=== PATIENT | female | born 1960 | race Caucasian/White ===

== ENCOUNTER 2017-03-15 12:24 | Day surgery (SDC) | payer OTHER ==
[~2017-03-15] VITALS: Ht 170.2 cm; Wt 68.0 kg
--- NOTE | 2017-03-15 07:53 | PCM.HPANE ---
Patient Data Surgeon Admitting Provider: Attending Provider:Thomas Gardner MD Primary Care Physician:Ericka Lazar MD Other Provider:Janeen Trotteringham Anesthesia Reason for Visit Adenomatous Polyp Of Colon Ht/WT & BMI Body Mass Index Allergies Coded Allergies: Sulfa (Sulfonamide Antibiotics) (Verified Allergy, Unknown, 03/14/17) Past Anesthesia History Anesthesia History: Positive for:: Fam Anesthesia Reaction (FATHER REACTS TO GENERAL ANESTHESIA NOT SURE WHAT REACTION HE GETS), Fam Malignant Hypertherm ( FATHER), Denies:: Abnormal Airway, Anesthesia Reactions, Difficult Intubation, Malignant Hyperthermia Diabetes History Hx Diabetes?: No MRSA MRSA: No Medications Reported Medications Acyclovir 400 Mg [id number] Mg PO BID Ref 0 03/14/17 Noreth A-Et Estra/Fe Fumarate (Microgestin Fe 11/19 Tablet)1 Tab Tablet1 Tab PO DAILY 09/26/13 Discontinued Reported Medications Temazepam 30 Mg Cap30 Mg PO HS PRN For Insomnia 30 Days Ref 0 03/14/17 Lidocaine (Topicaine)113 Gm Gel..gram.113 Gm TP 03/14/17 Lidocaine (Lidoderm)700 Mg Adh..patch1 Patch TP UD Ref 0 03/14/17 Hydrocodone-Acetaminophen 5-325 mg 1 Each Tablet1 Tablet PO Q4H PRN For Pain Ref 0 03/14/17 Peg 3350/Na Sulf,Bicarb,Cl/Kcl (Golytely Solution)4,000 Ml Soln.recon4,000 Ml PO UD 09/26/13 Bisacodyl-Expunged Drug, Do Not Renew! 5 Mg Aeyntw92 Mg PO ONCE For the relief of constipation. 09/26/13 Acyclovir-Expunged Drug, Do Not Renew! 200 Mg Picfyyb289 Mg PO Q4 09/26/13 History History of ENT Problems?: No HEENT History: Denies:: Abnormal Airway Difficult Intubation Hearing Problem Denture Type: None Teeth Condition: Within Normal Limits Hx of Heart Problems?: No Cardiovascular History: Denies:: AICD Abdominal Aortic Aneurism Atrial Fibrillation Cardiac Surgery Chest Pain Congestive Heart Failure Coronary Artery Disease Edema Heart Murmur Hypertension Irregular Heartbeat Pacemaker Peripheral Vascular Rheumatic Fever Thrombophlebitis Valvular Heart Disease Hx of Respiratory Problem?: No Respiratory History: Denies:: Asthma COPD Chest Surgery Cough Dyspnea Emphysema Hemoptysis Oxygen Administration Pneumonia Pulmonary Embolism Tuberculosis Use of C-PAP Machine Use of Inhalers / NEBS Hx Neurologic Problems?: No Neurological History: Denies:: Alzheimer's Disease CVA Dementia Dizziness Headaches Multiple Sclerosis Parkinson's Disease Peripheral Neuropathy Seizures TIA Hx of GI Problems?: No Gastrointestinal History: Denies:: Cirrhosis Diverticulitis Gall Bladder Disease Gastroesphageal Reflux Gastrointestinal Bleeding Heartburn Hepatitis Hiatal Hernia Liver Disease Rectal Bleeding Hx of Problems?: No Genitourinary History: Denies:: HX of Hemodialysis Kidney Stones Urinary Tract Infection Female Hx: Denies:: Currently Hx Musculoskeletal Problems?: No Musculoskeletal History: Denies:: Back Injury Degenerative Joint Fibromyalgia Joint Replacement Musculoskeletal Trauma Myasthenia Gravis Osteoarthritis Rheumatoid Arthritis Systemic Lupus Hx Surgeries?: Yes (laminectomy x 2) Hx Any Other Health Problems?: No Hx Diabetes: No Hx Alcohol Use: Yes (2 Glasses a week) Stop/Bang Risk Assessment Category Category 1A: Patient has history of documented sleep apnea, and HAS NOT received any narcotic, sedative or anesthesia administration during this stay. Category 1B: Patient has history of documented sleep apnea, and HAS received any narcotic , sedative or anesthesia administration during this stay Category 2: Patient has SUSPECTED Obstructive Sleep Apnea, and HAS received any narcotic , sedative or anesthesia administration during this stay. Category 3: Patient has SUSPECTED Obstructive Sleep Apnea and HAS NOT received narcotic, sedative or anesthesia administration during this stay. Category 4: Outpatient in Procedural Areas with known sleep apnea or who screen positive for High Risk via the STOP/BANG questionnaire. Exam Exam General Appearance: Alert, Oriented X3, Cooperative, No Acute Distress HEENT/AIRWAY: MP 2 Lungs: Clear to Auscultation Heart: Exam Unremarkable Plan Impression Patient chart reviewed, patient interviewed and anesthestic plan with risks, benefits, and alternatives discussed, and informed consent obtained. ASA Physical Status: ASA1 Normal Healthy Anesthetic Plan: GA Bene/Risks/Altern/Consents: Yes HP Complete Prior to Induction: Yes Darin Miguel MD March 15, 2017 07:53
[~2017-03-15 12:24] MED LIST: ACYC400T2 PO; BISA5TAB12 PO; HYDR-4003 PO; LIDO113G3 TP; LIDO700A6 TP; Lactated Ringer's 1,000 ML IV ONE; NORE1TAB59 PO; PEG4000S8 PO; RES30 PO
[2017-03-15] MEDS ORDERED: Propofol 10,000 mCg/mL 20 mL Inj ONE (12:25)
[2017-03-15] MEDS ORDERED: fentaNYL-PF 50 mCg/mL 2 mL Inj ONE (12:25)
[2017-03-15 12:46] VITALS: BP 152/102; PULSE 82; RESP 14; O2SAT 97
[2017-03-15 12:58] VITALS: BP 155/89
[2017-03-15] MEDS ORDERED: Lactated Ringer's 1,000 ML IV SCH (13:09)
[2017-03-15] MEDS ORDERED: MetoCLOpramide 5 mg/mL 2 mL Inj IVPUSH PRN (13:10)
[2017-03-15] MEDS ORDERED: Ondansetron 2 mg/mL 2 mL Inj IVPUSH PRN (13:10)
[2017-03-15 14:00] VITALS: BP 111/62; PULSE 82; RESP 16; O2SAT 98
--- NOTE | 2017-03-15 14:06 | PCM.ANEP1 ---
Post Anesthesia Phase 1 PACU Phase 1 Assessment Vital Signs Vital Signs Date Time Temp Pulse Resp B/P Pulse Ox O2 Delivery O2 Flow Rate FiO2 03/15/17 14:00 82 16 111/62 98 Room Air 03/15/17 12:58 155/89 03/15/17 12:46 36.7 82 14 152/102 97 Room Air Anesthetic Administered: GA Level of Alertness: Awake, talking WEBB's with Equal Strength: Yes Pain: No Nausea or Vomiting: No Oxygen Delivery: Room Air Lungs: Normal Air Movement Complications: No Follow up Care: No Darin Miguel MD March 15, 2017 14:06
[2017-03-15 14:09] VITALS: BP 130/78; PULSE 68; RESP 16; O2SAT 99
[2017-03-15 14:19] VITALS: BP 152/88; PULSE 72; RESP 16; O2SAT 98
--- NOTE | 2017-03-15 14:19 | ENDO ---
[address] [address] ENDOSCOPY PROCEDURE PATIENT: KEEGAN RAYMUNDO : 1960 MR#: [id number] ADMIT: 03/15/2017 JOB ID: [id number] DATE: 03/15/2017 PRIMARY PROVIDER: Ericka Lazar M.D. PROCEDURE: Colonoscopy with hot and cold snare polypectomy. INDICATIONS: A 56-year-old female who reports for colon cancer screening. She has a personal history of colon polyps. EQUIPMENT: PCZetrOZ H 180 AL. SEDATION: Monitored anesthesia as provided by Dr. Billy Miguel. COMPLICATIONS: None identified. BOWEL PREPARATION: Fair, adequate examination. PROCEDURAL INFORMATION: After the risks and benefits were explained, written and verbal informed consent was obtained. The patient was brought into the endoscopy suite and placed into the left lateral decubitus position. Sedation was achieved as above. A digital rectal examination was accomplished. No significant pathology appreciated apart from some mild internal hemorrhoids. The scope was introduced into the rectum and advanced under direct visualization to the level of the cecum, as identified by the appendiceal orifice and ileocecal valve. The scope was slowly withdrawn to carefully examine the mucosa for any defects or lesions. Multiple direct views were made through the dentate line for exclusion of pathology. The colon was decompressed. The scope removed from the patient who tolerated the procedure well. FINDINGS: Three small polyps were removed from the cecum. The largest was perhaps 6 mm. The smallest about 4-5 mm. The two larger ones we removed with hot snare. The smallest with cold snare. No other pathology was appreciated throughout. ENDOSCOPIC DIAGNOSIS: Gastroduodenopathy. 1. Three colon polyps. 2. Mild internal hemorrhoids. RECOMMENDATIONS: 1. Await histopathology. 2. Repeat colonoscopy in three years if all of these are confirmed adenomatous.
--- NOTE | 2017-03-18 09:59 | PATH ---
SURGICAL PATHOLOGY Attending Physician:Mireya Schumacher CASE STATUS: Signed Out PATIENT NAME: KEEGAN RAYMUNDO PID: [id number] : 1960 DATE COLLECTED:03/15/2017 00:00 SPECIMEN: Colon, Biopsy CLINICAL HISTORY: 1. CECAL POLYP X3 FINAL DIAGNOSIS: Cecal Polyps x3: Tubular adenoma, one. Benign colonic mucosa with intramucosal lymphoid aggregate, one. Benign colonic mucosa consistent with polypoid redundancy, one. Multiple microscopic levels examined. ICD10: D12.0 GROSS DESCRIPTION: The specimen is received in one formalin filled container labeled with the patient's name, sublabeled "cecal" and consists of 3 portions of tissue which aggregate to 0.3 x 0.3 x 0.2 CM. The specimen is entirely submitted in one cassette. 03/16/2017 [facility] MICRO DESCRIPTION: Please see diagnosis. ICD-9 CODES: CPT CODES: 1: 21975, 91299, 88628 Electronically Signed Out Tasha Tavarez MD [facility] [address], [place] [address] Technical component performed at [facility], [address] [place] [address] Ave[address], [place], [address]
== END 2017-03-15 23:59 | disposition home or self-care (01) ==
LOC: END 12:24
PROVIDERS: ATTEND Internal Medicine Gastroenterology
DX: Z12.11 Encounter for screening for malignant neoplasm of colon (principal); D12.0 Benign neoplasm of cecum; K64.8 Other hemorrhoids; Z86.010 Personal history of colon polyps
CPT/HCPCS: 45385; J2250; J3010; J7120

== ENCOUNTER → 2017-07-13 | Day surgery (SDC) | payer OTHER ==
[~2017-07-13] VITALS: Ht 170.2 cm; Wt 65.0 kg
[~2017-07-13] MED LIST changes: +0.9% Sodium Chloride 1,000 ML IV PRN; -BISA5TAB12 PO; -HYDR-4003 PO; -LIDO113G3 TP; -LIDO700A6 TP; -Lactated Ringer's 1,000 ML IV ONE; +Lactated Ringer's 1,000 ML IV SCH; +MetoCLOpramide 5 mg/mL 2 mL Inj IVPUSH PRN; +Ondansetron 2 mg/mL 2 mL Inj IVPUSH PRN; -PEG4000S8 PO; -RES30 PO; +Sodium Chloride LOK Flush 10 mL Syringe IV PRN; +fentaNYL-PF 50 mCg/mL 2 mL Inj IVPUSH PRN
[2017-07-13 11:24] VITALS: BP 154/89; PULSE 74; RESP 14; O2SAT 99
--- NOTE | 2017-07-13 11:50 | PCM.HPANE ---
Patient Data Surgeon Admitting Provider: Attending Provider:Thomas Gradner MD Primary Care Physician:Ericka Lazar MD Other Provider: Reason for Visit Right Upper Quadrant Pain Ht/WT & BMI Height (Feet): 5 Height (Inches): 7 Weight (Kilograms): 65 Body Mass Index 22.00 Allergies Coded Allergies: Sulfa (Sulfonamide Antibiotics) (Verified Allergy, Unknown, 07/13/17) Past Anesthesia History Anesthesia History: Positive for:: Fam Anesthesia Reaction (DAD), Fam Malignant Hypertherm (MY DAD HAS THAT THING WITH TEMPERATURE?), Denies:: Abnormal Airway, Anesthesia Reactions, Difficult Intubation, Malignant Hyperthermia Diabetes History Hx Diabetes?: No MRSA MRSA: No Medications Hypertension Medication: No Home Meds Incl Beta Jeovany: No Reported Medications Acyclovir 400 Mg Uzkqny416 Mg PO BID Ref 0 03/14/17 Noreth A-Et Estra/Fe Fumarate (Microgestin Fe 11/19 Tablet)1 Tab Tablet1 Tab PO DAILY 09/26/13 History History of ENT Problems?: No HEENT History: Denies:: Abnormal Airway Difficult Intubation Dysphagia Hearing Problem Denture Type: None Teeth Condition: Within Normal Limits Hx of Heart Problems?: No Cardiovascular History: Denies:: AICD Abdominal Aortic Aneurism Atrial Fibrillation Cardiac Surgery Chest Pain Congestive Heart Failure Edema Heart Murmur Hypertension Irregular Heartbeat Pacemaker Rheumatic Fever Thrombophlebitis Valvular Heart Disease Hx of Respiratory Problem?: No Respiratory History: Denies:: Asthma COPD Chest Surgery Cough Dyspnea Emphysema Hemoptysis Oxygen Administration Pneumonia Pulmonary Embolism Tuberculosis Use of C-PAP Machine Hx Neurologic Problems?: No Neurological History: Denies:: Alzheimer's Disease CVA Dementia Dizziness Headaches Multiple Sclerosis Parkinson's Disease Seizures Hx of GI Problems?: No Hx of Problems?: No Genitourinary History: Denies:: HX of Hemodialysis Kidney Stones Urinary Tract Infection Female Hx: Denies:: Currently Hx Musculoskeletal Problems?: No Musculoskeletal History: Denies:: Back Injury Degenerative Joint Fibromyalgia Joint Replacement Musculoskeletal Trauma Systemic Lupus Psycho Social History: Positive for:: Anxiety Denies:: Hx Depression Hx Surgeries?: Yes (TONSILS, LUMBAR LAMI L5-S1) Hx Any Other Health Problems?: Yes Hx Diabetes: No Hx Alcohol Use: Yes Smoking Status: Never Smoker Stop/Bang Treated for Sleep Apnea?: No Do You Have a CPAP Machine?: No S-Snoring: Do You Snore Loudly: No T-Tired: feel tired, fatigued: No O-Obsered: Observed not breath: No P-Blood Pressure: treated: Yes B- Body Mass Index > 35 kg/m2: No A- Age over 50: Yes N- Neck Large Circumference: No G- Gender Male: No RICK Total Score: 2 RICK Risk Assessment: Low Risk, <3 Yes Risk Assessment Category Category 1A: Patient has history of documented sleep apnea, and HAS NOT received any narcotic, sedative or anesthesia administration during this stay. Category 1B: Patient has history of documented sleep apnea, and HAS received any narcotic , sedative or anesthesia administration during this stay Category 2: Patient has SUSPECTED Obstructive Sleep Apnea, and HAS received any narcotic , sedative or anesthesia administration during this stay. Category 3: Patient has SUSPECTED Obstructive Sleep Apnea and HAS NOT received narcotic, sedative or anesthesia administration during this stay. Category 4: Outpatient in Procedural Areas with known sleep apnea or who screen positive for High Risk via the STOP/BANG questionnaire. Exam Exam Vital Signs Vital Signs Date Time Temp Pulse Resp B/P Pulse Ox O2 Delivery O2 Flow Rate FiO2 07/13/17 11:24 74 14 154/89 99 Room Air General Appearance: Oriented X3 HEENT/AIRWAY: MP 2 Lungs: Normal Air Movement Heart: Regular Rate/Rhythm Plan Impression Patient chart reviewed, patient interviewed and anesthestic plan with risks, benefits, and alternatives discussed, and informed consent obtained. ASA Physical Status: ASA2 Mod Systemic Disease Anesthetic Plan: MAC Bene/Risks/Altern/Consents: Yes HP Complete Prior to Induction: Yes Rashel Rodriguez MD Jul 13, 2017 11:50
[2017-07-13 12:17] VITALS: BP 121/76; PULSE 86; RESP 16; O2SAT 98
[2017-07-13 12:27] VITALS: BP 155/86; PULSE 85; RESP 16; O2SAT 99
--- NOTE | 2017-07-13 14:02 | ENDO ---
[address] [address] ENDOSCOPY PROCEDURE PATIENT: KEEGAN RAYMUNDO : 1960 MR#: [id number] ADMIT: 07/13/2017 JOB ID: [id number] DATE: 07/13/2017 PRIMARY PROVIDER: Ericka Lazar M.D. PROCEDURE: Esophagogastroduodenoscopy with biopsies. INDICATIONS: This is a 57-year-old female with new onset epigastric to right upper quadrant pain. Ultrasound did not reveal any obvious biliary abnormalities. Follow up HIDA scan was within normal limits. The patient, however, did report 5-6/10 pain with the CCK infusion. EGD is pursued today to exclude upper GI mucosal pathology. EQUIPMENT: GIF H 180 J. SEDATION: Monitored anesthesia as provided by Dr. Rashel Rodriguze. COMPLICATIONS: None identified. PROCEDURAL INFORMATION: After the risks and benefits were explained, written and verbal informed consent was obtained. The patient was brought into the endoscopy suite and placed into the left lateral decubitus position. Sedation was achieved using the above-stated medications with the addition of oxygen via nasal cannula. The scope was introduced into the mouth through the bite block, and advanced to the second portion of the duodenum. The scope was slowly withdrawn to carefully examine the mucosa for any defects or lesions. Retroflexed views were accomplished in the stomach. The stomach was decompressed. The scope removed from the patient who tolerated the procedure well. FINDINGS: 1. Duodenum: No significant mucosal pathology appreciated from the bulb through to the second portion. 2. Stomach: The patient had a diffuse mild gastropathy seen throughout. I did not see any outlet obstruction, ulcers, mass lesions or other significant mucosal pathology including retroflexed views of the LES. Random gastric biopsies were taken for exclusion of Helicobacter or other pathology. 3. Esophagus: The squamocolumnar junction correlated with the top of the gastric folds. The GEJ was at approximately 41 cm from the incisors. There was a subtle sliding hiatal hernia. No other esophageal pathology appreciated throughout. ENDOSCOPIC DIAGNOSIS: Gastroduodenopathy. 1. Subtle sliding hiatal hernia. 2. Mild gastropathy. RECOMMENDATIONS: 1. Await histopathology. 2. If Helicobacter is found, it will need to be eradicated with standard triple therapy. 3. I would recommend surgical consultation to discuss the symptoms in that thus far the only significant abnormality we have identified is the CCK induced pain during HIDA scan imaging.
--- NOTE | 2017-07-14 11:36 | PATH ---
SURGICAL PATHOLOGY Attending Physician:Mireya Schumacher CASE STATUS: Signed Out PATIENT NAME: KEEGAN RAYMUNDO PID: [id number] : 1960 DATE COLLECTED:07/13/2017 20:27 SPECIMEN: Gastric, Biopsy CLINICAL HISTORY: 1). GASTRIC BIOPSY, RULE OUT H.PYLROI FINAL DIAGNOSIS: Stomach, Biopsy: Body-type mucosa with no diagnostic abnormality. Negative for inflammation and Helicobacter organisms. Negative for intestinal metaplasia, dysplasia and malignancy. ICD10: R10.13 GROSS DESCRIPTION: The specimen is received in one formalin filled container labeled with the patient's name, sublabeled "gastric" and consists of a 0.3 x 0.3 x 0.2 CM portion of tissue which is entirely submitted in one cassette. 07/13/2017OR ICD-9 CODES: CPT CODES: 1: 79677 Electronically Signed Out Pb Terry MD, PhD [facility], [place] [address] Technical component performed at [facility], [address] [place] [address] Ave[address], [place], [address]
== END | disposition home or self-care (01) ==
LOC: END 02:26
PROVIDERS: ATTEND Internal Medicine Gastroenterology
DX: R10.11 Right upper quadrant pain (principal); K44.9 Diaphragmatic hernia without obstruction or gangrene; K31.9 Disease of stomach and duodenum, unspecified; F41.9 Anxiety disorder, unspecified; Z79.899 Other long term (current) drug therapy

== ENCOUNTER → 2017-07-28 | Day surgery (SDC) | payer OTHER ==
[~2017-07-28] VITALS: Ht 167.6 cm; Wt 64.8 kg
[2017-07-28] VITALS (7 sets, daily range): BP systolic 119–139; BP diastolic 67–85; PULSE 60–80; RESP 13–16; O2SAT 92–100
[~2017-07-28] MED LIST changes: -0.9% Sodium Chloride 1,000 ML IV PRN; +ACET-171 PO; +Bupivacaine-MPF 0.5% 30 mL Inj INFILTRATE ONE; +CeFAZolin 2 Gm/50 mL D5W Duplex Bag IV ONE; +CeFAZolin Inj 2 GM in IV Premix 1 EACH IV ONE; +Dexamethasone 4 mg/mL Inj IVPUSH PRN; +EPHEDrine Sulfate 50 mg/mL Inj IVPUSH PRN; +Glycopyrrolate 0.2 MG/ML 1mL Inj ONE; +HYDROmorphone 1 mg/mL Inj IVPUSH PRN; +IBUP-1827 PO; +Labetalol 5 mg/mL 20 mL Inj IV PRN; +Lactated Ringer's 1,000 ML IV ONE; +Lactated Ringer's 500 ML IV PRN; +METR45CR TOP; -NORE1TAB59 PO; +Neostigmine 1 mg/mL 10 mL Inj ONE; +OXYC-530 PO; +Ondansetron 2 mg/mL 2 mL Inj ONE; +POLY17PO6 PO; +Phenylephrine 10,000 mCg/mL Inj IVPUSH PRN; +Phenylephrine/NS 100 mCg/mL 10 mL Syringe IVPUSH ONE; +Propofol 10,000 mCg/mL 20 mL Inj ONE; -Sodium Chloride LOK Flush 10 mL Syringe IV PRN; +Succinylcholine Chloride 20 mg/mL 5 mL Inj ONE; +fentaNYL-PF 50 mCg/mL 2 mL Inj ONE
--- NOTE | 2017-07-28 08:15 | PCM.HPANE ---
Patient Data Surgeon Admitting Provider: Attending Provider:Kirsty Chang MD Primary Care Physician:Ericka Lazar MD Other Provider:Janeen Trotteringham Anesthesia Reason for Visit Biliary Colic Ht/WT & BMI Height (Feet): 5 Height (Inches): 5.25 Weight (Kilograms): 66.40 Body Mass Index 24.00 Allergies Coded Allergies: Sulfa (Sulfonamide Antibiotics) (Verified Allergy, Unknown, whites of eyes bret, itching mouth, 07/22/17) Past Anesthesia History Anesthesia History: Positive for:: Fam Anesthesia Reaction (father- ice cold after surgery, has to be warmed up in PACU), Denies:: Abnormal Airway, Anesthesia Reactions, Difficult Intubation, Fam Malignant Hypertherm, Malignant Hyperthermia Diabetes History Hx Diabetes?: No MRSA MRSA: No Medications Home Meds Incl Beta Jeovany: No Active Scripts Polyethylene Glycol 3350 (Miralax)17 Gm Powd.pack17 Gm PO DAILY PRN For Constipation #1 BOTTLE Prov:Marlo Tinajero MD 07/28/17 oxyCODONE 5 Mg Tablet5 Mg PO Q4H PRN For Pain #12 TABLET Prov:Marlo Tinajero MD 07/28/17 Ibuprofen 600 Mg Owsffl953 Mg PO QID PRN For Pain #30 TABLET Prov:Marlo Tinajero MD 07/28/17 Acetaminophen 500 Mg Gormjt996 Mg PO Q6H PRN For Pain #60 TABLET Prov:Marlo Tinajero MD 07/28/17 Reported Medications Metronidazole (Metronidazole Cream)45 Gm Cream..g.1 Applic TOP BID #45 GM Ref 0 07/22/17 Acyclovir 400 Mg Fsainc343 Mg PO BID Ref 0 07/22/17 Discontinued Reported Medications Acyclovir 400 Mg Euyqit512 Mg PO BID Ref 0 03/14/17 Noreth A-Et Estra/Fe Fumarate (Microgestin Fe 11/19 Tablet)1 Tab Tablet1 Tab PO DAILY 09/26/13 History History of ENT Problems?: No HEENT History: Denies:: Abnormal Airway Cataracts Difficult Intubation Dysphagia Glaucoma Hearing Problem Denture Type: None Teeth Condition: Within Normal Limits Hx of Heart Problems?: No Cardiovascular History: Denies:: AICD Abdominal Aortic Aneurism Atrial Fibrillation Cardiac Surgery Chest Pain Congestive Heart Failure Edema Heart Murmur Hypertension Irregular Heartbeat Pacemaker Rheumatic Fever Thrombophlebitis Valvular Heart Disease Hx of Respiratory Problem?: No Respiratory History: Denies:: Asthma COPD Chest Surgery Cough Dyspnea Emphysema Hemoptysis Oxygen Administration Pneumonia Pulmonary Embolism Tuberculosis Use of C-PAP Machine Hx Neurologic Problems?: No Neurological History: Denies:: Alzheimer's Disease CVA Dementia Dizziness Headaches Multiple Sclerosis Parkinson's Disease Seizures Hx of GI Problems?: Yes Hx of Problems?: No Genitourinary History: Denies:: HX of Hemodialysis Kidney Stones (questionable but unknown) Urinary Tract Infection Other Pertinent History: kidney on left slightly enlarged Female Hx: Denies:: Currently (post menopausal ) Problems with Breasts? Skin History: Denies:: History Skin Disorders? Pressure Ulcers Hx Musculoskeletal Problems?: Yes Musculoskeletal History: Positive for:: Back Injury (2 prior back surgery L5- S1) Denies:: Degenerative Joint Fibromyalgia Joint Replacement Musculoskeletal Trauma Osteoarthritis Systemic Lupus Hx of Psycho/Social Problems?: No Psycho Social History: Denies:: Anxiety Hx Depression Hx Surgeries?: Yes (TONSILS, LUMBAR LAMI L5-S1) Hx Any Other Health Problems?: Yes Other History: Denies:: Cancer Thyroid Disease Hx Diabetes: No Hx Alcohol Use: Yes (not in last month, prior to that twice monthly)Hx Substance Use: No Smoking Status: Never Smoker Stop/Bang S-Snoring: Do You Snore Loudly: No T-Tired: feel tired, fatigued: No O-Obsered: Observed not breath: No P-Blood Pressure: treated: Yes B- Body Mass Index > 35 kg/m2: No A- Age over 50: Yes N- Neck Large Circumference: No G- Gender Male: No RICK Total Score: 2 Risk Assessment Category Category 1A: Patient has history of documented sleep apnea, and HAS NOT received any narcotic, sedative or anesthesia administration during this stay. Category 1B: Patient has history of documented sleep apnea, and HAS received any narcotic , sedative or anesthesia administration during this stay Category 2: Patient has SUSPECTED Obstructive Sleep Apnea, and HAS received any narcotic , sedative or anesthesia administration during this stay. Category 3: Patient has SUSPECTED Obstructive Sleep Apnea and HAS NOT received narcotic, sedative or anesthesia administration during this stay. Category 4: Outpatient in Procedural Areas with known sleep apnea or who screen positive for High Risk via the STOP/BANG questionnaire. Exam Exam General Appearance: Alert, Oriented X3, Cooperative HEENT/AIRWAY: MP 2 Lungs: Clear to Auscultation Heart: Exam Unremarkable Plan Impression Patient chart reviewed, patient interviewed and anesthestic plan with risks, benefits, and alternatives discussed, and informed consent obtained. ASA Physical Status: ASA2 Mod Systemic Disease Anesthetic Plan: GA Bene/Risks/Altern/Consents: Yes HP Complete Prior to Induction: Yes Pat Degroot MD Jul 28, 2017 08:15
[2017-07-28] MEDS: Lactated Ringer's 1,000 ML IV SCH ×2 (11:18→12:38)
--- NOTE | 2017-07-28 12:47 | PCM.DISURG ---
Surgical Discharge Instruction Date of Service Jul 28, 2017 Dates of Hospitalization Date of Hospital Admission Providers Admitting Physician: Primary Care Physician: Ericka Lazar MD Attending Physician: Kirsty Chang MD Discharge Diagnosis Discharge Diagnosis Cholecystitis Post Operative diagnosis Cholecystitis Diet Discharge Diet: No restrictions Activity Discharge Activity-General: Balance rest and activity, No lifting >15 pounds for 2 weeks, No driving while taking narcotic Dressing and Incisional Care Dressing Care: Allow Steri Stripes to fall off (usually takes 1-2 weeks), Remove outer dressing after 24 hrs ((bandaids can come off)) Hygiene: May shower after (24 hours), DO NOT soak incision under water (for 2 weeks), NO bathtub, hot tub or whirlpool (for 2 weeks) Follow Up Plan Mid-level Provider (F9): Ugo Dawkins PA-C Follow-up appointment: Weeks (2-4) Marlo Tinajero MD Jul 28, 2017 12:47
--- NOTE | 2017-07-28 14:29 | PCM.SURGOP ---
Surgical Operative Report Date of Service: Jul 28, 2017 Pre Operative Diagnosis Biliary colic Post Operative Diagnosis Chronic cholecystitis Procedure: Laparoscopic cholecystectomy, with intraoperative cholangiogram, with interpretation. Surgeon and Biomedical Engineering Supervisor: Surgeon: Kirsty Chang MD Assistants: Marlo Tinajero M.D. R3; Danay Lamar, MS3 Indication for Procedure This is a 57-year-old woman with severe postprandial upper quadrant and epigastric pain, worse with fatty foods. Her symptoms began 1 month ago. She went through a very extensive workup, including upper endoscopy, CT scan, abdominal ultrasound, HIDA scan, and labs. On all of this workup, the only abnormality was her severe pain after cholecystokinin injection during HIDA scan , and a very high gallbladder ejection fraction, 82.8%. Despite this, her symptoms were classic for biliary colic. Therefore, laparoscopic cholecystectomy was carefully discussed with her as a diagnostic and possibly therapeutic measure. Findings: 1. Moderately inflamed gallbladder with overlying adhesions. 2. Normal intraoperative cholangiogram with a long cystic duct, no filling defects, and adequate visualization of the right and left hepatic ducts, common hepatic duct, common bile duct, with good filling of the duodenum. Procedure Details The patient was brought to the operating room and placed in supine position. General endotracheal anesthesia was smoothly induced. Antibiotics were infused. A warming blanket and SCDs were placed. A foot board was placed. The operative field was prepped and draped in sterile fashion. A pause was performed to confirm the correct patient, procedure, site, and side. A transverse 10 mm incision was made just below the umbilicus. The abdomen was entered under direct vision using a Mariam port. Three additional 5 mm ports were placed in the epigastrium and right upper quadrant. The gallbladder was identified and lifted cephalad. There were moderate adhesions due to cholecystitis. The duodenum was gently dissected off of the gallbladder. Dissection then proceeded to identify the cystic duct, cystic artery, and to expose the lower one-third of the cystic plate. Once there were two and only two structures entering the gallbladder, a clip was placed on the gallbladder side of the cystic duct. A ductotomy was made and a cholangiocatheter was inserted. A cholangiogram was performed and the cystic duct was long and patent with normal filling of the common hepatic duct, common bile duct, and right and left hepatic ducts, as noted above. The cholangiocatheter was then removed, two clips were placed on the cystic duct and it was divided. The cystic artery was clipped on both the gallbladder side and twice on the patient's side and divided. The gallbladder was then removed from its bed on the liver with electrocautery. Prior to completely removing the gallbladder, a final look was taken at the stump of the cystic artery and cystic duct, and there was no bleeding or bile leak. The gallbladder was then fully removed from the liver and placed in an EndoCatch bag and removed. The three 5 mm ports were removed under direct vision, the 10 mm mid abdominal port was removed, and a [id number] 0 PDS was used to close the fascia. There was no fascial defect at the end of the case. 0.5% Marcaine with epinephrine was infused at all port sites for postoperative analgesia. The skin was closed with subcuticular 4-0 Monocryl. Sterile dressings were placed. Sponge, instrument, and needle counts were correct at the end of the procedure. The patient was awakened from general anesthesia and taken to the postoperative care unit in good condition. Complications There were no periprocedural complications identified. Surgical Specimen Removed: Yes Specimen sent to Pathology: Yes Surgical Specimen description: Gallbladder Anesthetic Plan: GA Grafts, Implants: None Output, Estimated Blood Loss: 5 (ml) Blood Administration during michel: No Kirsty Chang MD Jul 28, 2017 14:29
--- NOTE | 2017-07-28 14:42 | DRSVH ---
PROCEDURE: X-RAY OPERATIVE CHOLANGIOGRAM ([id number]) INDICATIONS: BILIARY COLIC COMPARISON: None. FINDINGS: Biliary ducts: The surgeon injected contrast into the biliary ducts after cannulation of the cystic duct stump. Visualized intra- and extrahepatic bile ducts are normal in caliber, without strictures. No intraluminal filling defects to suggest retained ductal stones or sludge. No evidence for iatro genic ductal injury. Duodenum: Contrast flows promptly through the sphincter of Oddi into the duodenum, which appears nor mal in caliber. IMPRESSION: Normal operative cholangiogram. Dictated by: Lucian Martinez [facility] Interpreted: Moraima Hays MD on 07/28/2017 at 14:36 Approved by: Moraima Hays M.D. on 07/28/2017 at 14:40
--- NOTE | 2017-07-28 15:01 | PCM.ANEP1 ---
Post Anesthesia PACU Phase 1 Assessment Vital Signs Vital Signs Date Time Temp Pulse Resp B/P Pulse Ox O2 Delivery O2 Flow Rate FiO2 07/28/17 14:44 60 13 125/71 95 07/28/17 14:30 60 15 122/68 95 07/28/17 14:25 62 16 134/72 96 Room Air 07/28/17 14:20 65 13 139/73 100 Simple Mask 10 07/28/17 14:15 37.0 66 15 138/67 100 Simple Mask 10 07/28/17 11:14 36.3 80 16 139/85 98 Room Air Anesthetic Administered: GA Level of Alertness: Awake, talking WEBB's with Equal Strength: Yes Pain: Yes Pain Scale Score: 5 Nausea or Vomiting: No CV Function & Hydration Stable: Yes Airway Device: Oxygen Delivery: Room Air Lungs: Clear to Auscultation PACU Phase 2 Assessment Complications: No Follow up Care: No Patient Instructions Provided: Yes Pat Degroot MD Jul 28, 2017 15:01
[2017-07-28] MEDS: fentaNYL-PF 50 mCg/mL 2 mL Inj IVPUSH PRN ×2 (15:10→15:33)
--- NOTE | 2017-08-03 09:00 | PATH ---
SURGICAL PATHOLOGY Attending Physician:Kirsty Chang MD CASE STATUS: Signed Out PATIENT NAME: KEEGAN RAYMUNDO PID: [id number] : 1960 DATE COLLECTED:07/28/2017 00:00 SPECIMEN: Gallbladder CLINICAL HISTORY: BILIARY COLIC, CHRONIC CHOLECYSTITIS 1). GALLBLADDER FINAL DIAGNOSIS: Gallbladder, Laparoscopic Cholecystectomy: Chronic cholecystitis and cholesterolosis. ICD10: K81.1 GROSS DESCRIPTION: The specimen is received in one formalin filled container labeled with the patient's name, sublabeled "gallbladder" and consists of an opened 5.5 x 2.2 x 0.7 CM gallbladder. The serosa is smooth. The wall is 0.2-0.3 CM in thickness. The mucosa is a light green in color. The lumen contains a light green mucoid material and no calculus are noted. 5 senior patient account representative sections are submitted in one cassette. 07/29/2017DC ICD-9 CODES: CPT CODES: 1: 37831 Electronically Signed Out Jaqueline Hein MD [facility] Pathology [facility] [address], [place] [address] Technical component performed at [facility], [address] [place] [address] Ave[address], [place], [address]
== END | disposition home or self-care (01) ==
LOC: SAS 10:33
PROVIDERS: ATTEND Surgery
DX: K80.10 Calculus of gallbladder with chronic cholecystitis without obstruction (principal); R10.11 Right upper quadrant pain; Z86.010 Personal history of colon polyps; K44.9 Diaphragmatic hernia without obstruction or gangrene
CPT/HCPCS: 47563; 74300; J0330; J0690; J1170; J1885; J2370; J2405; J2704; J2710; J3010; J7120; Q9967